=== PATIENT | male | born 1990 | race Caucasian/White ===

== ENCOUNTER 2021-06-14 10:13 | Emergency (ER) | payer OTHER ==
[~2021-06-14] VITALS: Ht 165.1 cm; Wt 70.4 kg
[2021-06-14] MEDS ORDERED: LORA10TA3 PO (10:26)
[2021-06-14 12:14] LABS: BASO % 0.7 % (0.0-1.0); EOS # 0.2 10^3/uL (0.0-0.5); EOS % 5.4 % (0.0-3.0); HEMOGLOBIN 14.5 g/dl (13.5-17.5); LYMPH % 22.4 % (24.0-44.0); MEAN CORPUSCULAR HGB CONC 34.5 g/dl (32.0-36.5); MEAN CORPUSCULAR VOLUME 92.7 fl (80.0-96.0); MONO # 0.4 10^3/uL (0.0-0.8); MONO % 8.4 % (2.0-8.0); NEUTROPHILS # 2.8 10^3/uL (1.5-8.5); NEUTROPHILS % 62.9 % (36.0-66.0); PLATELET COUNT, AUTOMATED 200 10^3/uL (150-450); RED BLOOD COUNT 4.53 10^6/uL (4.30-6.10); WHITE BLOOD COUNT 4.4 10^3/uL (4.0-10.0)
[2021-06-14 12:38] LABS: ERYTHROCYTE SEDIMENTATION RATE 1 mm/hr (0-15)
[2021-06-14 12:40] LABS: ALBUMIN 3.8 GM/DL (3.2-5.2); ALT/SGPT 32 U/L (12-78); BILIRUBIN,DIRECT 0.2 MG/DL (0.0-0.2); BILIRUBIN,TOTAL 0.6 MG/DL (0.2-1.0); BLOOD UREA NITROGEN 17 MG/DL (7-18); CALCIUM LEVEL 9.1 MG/DL (8.5-10.1); CARBON DIOXIDE LEVEL 29 MEQ/L (21-32); CHLORIDE LEVEL 109 MEQ/L (98-107); COMPLEMENT C4 17 MG/DL (10-40); CREATININE FOR GFR 0.85 MG/DL (0.70-1.30); GLOMERULAR FILTRATION RATE > 60.0 (>60); GLUCOSE, FASTING 107 MG/DL (70-100); SODIUM LEVEL 142 MEQ/L (136-145); TOTAL PROTEIN 6.1 GM/DL (6.4-8.2)
[2021-06-14] MEDS ORDERED: PRED20TA PO (13:34)
[2021-06-14] MEDS ORDERED: HYDR-3363 PO (13:34)
[2021-06-14] MEDS ORDERED: FAMOTIDINE 20 MG TAB PO ONE (13:35)
[2021-06-14] MEDS ORDERED: VENTAER INH (13:35)
[2021-06-14] MEDS ORDERED: predniSONE 20 MG TAB PO ONE (13:35)
[2021-06-14 13:39] VITALS: BP 108/57
== END 2021-06-14 13:56 | disposition home or self-care (01) ==
LOC: M ED 10:13
DX: L50.1 Idiopathic urticaria (principal); F17.200 Nicotine dependence, unspecified, uncomplicated
CPT/HCPCS: 80048; 80076; 83519; 85025; 85280; 85652; 86140; 86160; 86161; 99283; J7512

== ENCOUNTER 2021-11-11 13:38 | Emergency (ER) | payer OTHER ==
[~2021-11-11] VITALS: Ht 170.2 cm; Wt 70.2 kg
[~2021-11-11 13:38] MED LIST: HYDR-3363 PO; LORA10TA3 PO; PRED20TA PO; VENTAER INH
[2021-11-11] MEDS ORDERED: AUGMENTIN 875 MG TAB PO ONE (14:45)
[2021-11-11] MEDS ORDERED: BOOSTRIX/ADACEL VACCINE (DIPHTH/PERTUSS/ACELL/TETANUS) 0.5ML SYR IM ONE (14:45)
[2021-11-11] MEDS ORDERED: AMOX875T2 PO (15:16)
[2021-11-11 15:23] VITALS: BP 111/64
== END 2021-11-11 15:25 | disposition home or self-care (01) ==
LOC: M ED 13:38
DX: S81.852A Open bite, left lower leg, initial encounter (principal); W54.0XXA Bitten by dog, initial encounter; Y92.009 Unspecified place in unspecified non-institutional (private) residence as the place of occurrence of the external cause; F17.200 Nicotine dependence, unspecified, uncomplicated; Z23 Encounter for immunization; Z79.899 Other long term (current) drug therapy; Z79.51 Long term (current) use of inhaled steroids